=== PATIENT | male | born 1965 ===

== ENCOUNTER 2020-08-15 07:41 | Emergency (ER) | payer OTHER ==
[~2020-08-15] VITALS: Ht 175.3 cm; Wt 81.6 kg
[2020-08-15] MEDS ORDERED: PEPCID AC20 MG PO (15:52)
[2020-08-15] MEDS ORDERED: LEVSIN/SL0.125 MG SL (15:52)
== END 2020-08-15 16:02 | disposition home or self-care (01) ==
LOC: ER 07:41
DX: R10.11 Right upper quadrant pain (principal)